=== PATIENT | female | born 1970 | race African-American/Black ===

== ENCOUNTER 2016-09-19 16:00 | Inpatient (IN) | payer MEDICARE, OTHER ==
[~2016-09-19] VITALS: Ht 160 cm; Wt 119.3 kg
--- NOTE | ~2016-09-19 | PN ---
Unit #: [id number] #: [id number] Patient: LINNETTE ZAVALA [id number] [facility] [address] [place] [address] [id number] MR#: [id number] NAME: LINNETTE ZAVALA. ROOM: P258 Age: 46 Sex: F Admission Date: 09/19/2016 : 1970 Attending Physician: Tolu Cazares M.D. Admitting Physician: Tolu Cazares M.D. Primary Care Physician: Primary Care Physician Adina PAIGE NOTES DATE 09/28/2016 DISCUSSION Ms. Zavala is a 46-year-old female who was seen today and chart was reviewed and case was discussed with the staff. She has been anxious, withdrawn and rather seclusive to herself. Meanwhile, she has been cooperative with treatment recommendations as she has been taking the medications and tolerating them fairly well with no reported side effects. MENTAL STATUS EXAMINATION Middle-aged female who was casually dressed with fair personal hygiene, appears to be in no acute distress or discomfort. She was awake and alert with intact orientation. Her mood was anxious with congruent affect. She denies any suicidal or homicidal ideations. Her insight and judgement remains slightly impaired. TREATMENT PLAN 1. We will continue her on her current medications and treatment protocol. We will monitor her response to the medication and make further adjustments as needed. 2. We will continue to follow up. Dictated by... Jane Chambers/hugo TD: 09/29/2016 03:32 JOB #: [id number] Unit #: [id number] #: [id number] Patient: LINNETTE ZAVALA CARMEN PROGRESS NOTES Page 1 of 1 X Tolu Cazares MD PROGRESS NOTE
--- NOTE | ~2016-09-19 | PN ---
Unit #: [id number] #: [id number] Patient: LINNETTE ZAVALA [id number] [facility] [address] [place] [address] [id number] MR#: [id number] NAME: LINNETTE ZAVALA. ROOM: P258 Age: 46 Sex: F Admission Date: 09/19/2016 : 1970 Attending Physician: Tolu Cazares M.D. Admitting Physician: Tolu Cazares M.D. Primary Care Physician: Primary Care Physician Adina MORALES PROGRESS NOTES DATE 09/26/2016 DISCUSSION Ms. Zavala is a 46-year-old female who was seen today and chart was reviewed and case was discussed with the staff. She reports persistent depression but she states anxiety is worse and she feels that her current medications are not effectively controlling her anxiety symptoms. Meanwhile, she has been going to therapy groups and has been participating. MENTAL STATUS EXAMINATION Middle-aged female who was casually dressed with fair personal hygiene and appears to be in no acute distress or discomfort. She was awake and alert on interaction with intact orientation. Her mood was anxious and depressed with congruent affect. Her speech is slow and goal-directed. She reports having suicidal ideation but denies any homicidal ideations. Her insight and judgement remain slightly impaired. TREATMENT PLAN 1. Will continue on current medications and treatment protocol. Will monitor her response to the medications and make further adjustments as needed. 2. Will continue to follow up. Dictated by... Jane Chambers/don TD: 09/26/2016 20:45 JOB #: [id number] Unit #: [id number] #: [id number] Patient: LINNETTE ZAVALA PROGRESS NOTES Page 1 of 1 X Tolu Cazares MD PROGRESS NOTE
--- NOTE | ~2016-09-19 | PN ---
Unit #: [id number] #: [id number] Patient: LINNETTE ZAVALA [id number] [facility] [address] [place] [address] [id number] I MR#: [id number] NAME: LINNETTE ZAVALA. ROOM: P258 Age: 46 Sex: F Admission Date: 09/19/2016 : 1970 Attending Physician: Tolu Cazares M.D. Admitting Physician: Tolu Cazares M.D. Primary Care Physician: Primary Care Physician Adina MORALES PROGRESS NOTES DATE 09/30/2016 DISCUSSION Ms. Zavala is a 46-year-old female who was seen today and chart was reviewed and case was discussed with the staff. She has been anxious, withdrawn, depressed and rather seclusive to herself. Meanwhile, she has been cooperative with treatment recommendations and has been taking the medications and tolerating them fairly well with no reported side effects. MENTAL STATUS EXAMINATION Middle-aged female who was casually dressed with fair personal hygiene and appears to be in no acute distress or discomfort. She was awake and alert with impaired attention and concentration. Her mood was anxious with congruent affect. She denies any current suicidal or homicidal ideations. Her insight and judgement remains slightly impaired. TREATMENT PLAN 1. Will continue on current medications and treatment protocol. Will monitor her response to the medications and make further adjustments as needed. 2. Will continue to follow up. Dictated by... Jane Chambers/don TD: 09/30/2016 18:18 JOB #: [id number] Unit #: [id number] #: [id number] Patient: LINNETTE ZAVALA PROGRESS NOTES Page 1 of 1 X Tolu Cazares MD X PROGRESS NOTE
--- NOTE | ~2016-09-19 | PA ---
Unit #: [id number] #: [id number] Patient: [facility] AGUIAR [id number] [facility] [address] [place] [address] [id number] I MR#: [id number] NAME: LINNETTE AGUIAR ROOM: P258 Age: 46 Sex: F Admission Date: 09/19/2016 : 1970 Date of Assessment: Attending Physician: Tolu Cazares M.D. Admitting Physician: Tolu Cazares M.D. Primary Care Physician: Primary Care Physician No PSYCHIATRIC ASSESSMENT DATE OF SERVICE 09/20/2016. IDENTIFYING DATA Ms. Aguiar is a 46-year-old single, female who is a resident of [place], [place] and is known to us from previous multiple encounters and was self-referred to the hospital on a voluntary basis. CHIEF COMPLAINT "I'm hearing voices and it has been telling me to kill myself." HISTORY OF PRESENT ILLNESS Ms. Aguiar is a 46-year-old female with history of mood disorder, who was self-referred to the hospital reporting not feeling good and was seen to be anxious, withdrawn, and reports increasing depression, anxiety, feelings of hopelessness and helplessness, and disturbed sleep and appetite, poor energy level, psychomotor retardation, and suicidal ideations as well as auditory hallucinations which are command in nature stating the voices are telling her to kill herself and as such, recommendation for inpatient level of care for safety and stabilization was made and the patient was transferred to us. SUBSTANCE ABUSE HISTORY The patient does have history of experimentation with alcohol, cannabis, and cocaine, but denies any current ongoing substance abuse issues. PAST PSYCHIATRIC HISTORY The patient has had history of multiple inpatient psychiatric and chemical dependency treatments including [facility] and residential facilities and review of the medical records indicate that she has been diagnosed and treated for bipolar disorder and supposed to be on Neurontin and Celexa and trazodone, but has been noncompliant with medication as such, has been decompensating. PAST MEDICAL HISTORY The patient's medical history is significant for hypertension and seizure disorder. ALLERGIES No known medication allergies. PERSONAL AND SOCIAL HISTORY A 46-year-old female who reports that she is single, Unit #: [id number] #: [id number] Patient: LINNETTE AGUIAR unemployed, and essentially homeless and has poor social support system. MENTAL STATUS EXAMINATION Middle-aged female who was casually dressed with fair personal hygiene, appears to be in no acute distress or discomfort. She was awake and alert on interaction with intact orientation to time, place, and person. Her mood was anxious and depressed with a congruent affect. Her speech was slow and restricted in content. She reports having suicidal ideations and command auditory hallucinations. Her insight and judgment remain significantly impaired. DIAGNOSTIC IMPRESSION Psychiatric: Bipolar disorder, most recent episode depressed, recurrent, moderate, with psychosis. Medical: Cannabis abuse, moderate; cocaine abuse, moderate. Medical: Hypertension, seizure disorder. Stressors: Moderate psychosocial stressors. TREATMENT PLAN 1. The patient has presented with history of mood disorder and psychosis and we will recommend inpatient hospitalization for safety and stabilization. We will start her back on her home medications. We will adjust the medications and monitor response. 2. Supportive therapy was provided to the patient. 3. Safe, structured, and nourishing environment will be provided. ESTIMATED LENGTH OF STAY 5 to 7 days. ABILITY TO HELP SELF Limited. WILLINGNESS TO HELP SELF The patient appears to be willing to help self. STRENGTHS 1. Communicative. 2. Cooperative. PROBLEMS 1. Chronic dysphoric symptoms. 2. Chronic chemical dependency. 3. Poor social support system. DISCHARGE CRITERIA This will be contingent upon the patient's ability to show resolution of her depression and psychosis, and her ability to stay safe to herself, particularly after discharge from the hospital. Dictated by... Tolu Cazares M.D. BERNARDO/emanuel TD: 09/20/2016 13:13 JOB #: [id number] Unit #: [id number] #: [id number] Patient: LINNETTE AGUIAR PSYCHIATRIC ASSESSMENT Page 1 of 1 X Tolu Cazares MD PSYCHIATRIC ASSESSMENT
--- NOTE | ~2016-09-19 | DS ---
Unit #: [id number] #: [id number] Patient: LINNETTE AGUIAR [id number] [facility] [address] [place] [address] [id number] I MR#: [id number] NAME: LINNETTE AGUIAR. ROOM: P258 Age: 46 Sex: F Admission Date: 09/19/2016 : 1970 Discharge Date: 10/02/2016 Attending Physician: Tolu Cazares M.D. Primary Care Physician: Primary Care Physician No DISCHARGE SUMMARY IDENTIFYING DATA Ms. Aguiar is a 46-year-old disabled female who is a resident of [place], [place] and is known to us from previous encounter and was self-referred to the hospital. HISTORY OF PRESENT ILLNESS Please see initial psychiatric evaluation. PAST PSYCHIATRIC HISTORY Please see initial psychiatric evaluation. PAST MEDICAL HISTORY Please see initial psychiatric evaluation. HOSPITAL COURSE The patient was [facility] and was oriented to the hospital environment. Routine p.r.n. medications were initiated and she was started back on her home medications. Medications were adjusted including her Risperdal and Effexor and was closely monitored. She was taking the medications and was complaining of persistent depressive symptoms and as such medications were gradually titrated up. She was seen to be polite and pleasant for the most part was cooperative with treatment recommendations and did not show any episode of agitation and aggression and was able to show a fairly decent therapeutic response and was willing to continue treatment on outpatient basis and was denying any further suicidal ideations and was not seen to be danger to self or anyone else and as such it was decided that she will be discharged and will continue treatment on outpatient basis. DISCHARGE DIAGNOSES PSYCHIATRIC: 1. Bipolar disorder, most recent episode depressed, recurrent, moderate, without psychotic features. 2. Cannabis abuse, moderate. 3. Cocaine abuse, moderate. MEDICAL: 1. Hypertension. 2. Seizure disorder. STRESSORS: Mild psychosocial stressors. Unit #: [id number] #: [id number] Patient: LINNETTE AGUIAR DISCHARGE MEDICATIONS 1. Neurontin 800 mg t.i.d. for neuropathy. 2. Topamax 100 mg at bedtime for mood. 3. Risperdal 2 mg at bedtime for bipolar. 4. Effexor XR 75 mg in the morning for depression. 5. Trazodone 150 mg at bedtime for sleep. 6. BuSpar 10 mg b.i.d. for anxiety. CONDITION AT DISCHARGE Stable. PROGNOSIS Fair. Dictated by... Tolu Cazares M.D. BERNARDO/don TD: 10/02/2016 18:57 JOB #: [id number] DISCHARGE SUMMARY Page 1 of 1 X Tolu Cazares MD X DISCHARGE SUMMARY
--- NOTE | ~2016-09-19 | PN ---
Unit #: [id number] #: [id number] Patient: LINNETTE ZAVALA [id number] [facility] [address] [place] [address] [id number] MR#: [id number] NAME: LINNETTE ZAVALA. ROOM: P258 Age: 46 Sex: F Admission Date: 09/19/2016 : 1970 Attending Physician: Tolu Cazares M.D. Admitting Physician: Tolu Cazares M.D. Primary Care Physician: Primary Care Physician Adina MORALES PROGRESS NOTES DATE OF SERVICE 09/22/2016 DISCUSSION Ms. Dawson is a 46-year-old female. The patient interviewed, chart reviewed. Obtained information from nursing staff. The patient withdrawn, isolative, flat affect. Continues to report feeling sad, depressed. Still having suicidal thoughts. Unable to contract for safety. Complete Review of Systems: Unremarkable. MENTAL STATUS EXAMINATION General Appearance: The patient dressed casually. Attention span, concentration: Fair. Oriented in place and person. Mood and affect labile. Speech: Monotone. Thought process: [place]. The patient denied any thoughts of harming self or others or any psychotic symptom. Recent and remote memory: Poor. Insight and judgment: Poor. DIAGNOSIS Major depressive disorder, recurrent, severe. ASSESSMENT/PLAN Advised to continue with current medication and therapeutic protocol. If needed, consider further adjustment of medication. Dictated by... Jane Cosme/rosa TD: 09/23/2016 11:06 JOB #: [id number] Unit #: [id number] #: [id number] Patient: LINNETTE ZAVALA [facility] PROGRESS NOTES Page 1 of 1 X Chano Davis MD PROGRESS NOTE
--- NOTE | ~2016-09-19 | PN ---
Unit #: [id number] #: [id number] Patient: LINNETTE ZAVALA [id number] [facility] [address] [place] [address] [id number] MR#: [id number] NAME: LINNETTE ZAVALA. ROOM: P258 Age: 46 Sex: F Admission Date: 09/19/2016 : 1970 Attending Physician: Tolu Cazares M.D. Admitting Physician: Tolu Cazares M.D. Primary Care Physician: Primary Care Physician Adina MORALES PROGRESS NOTES DATE OF SERVICE 10/01/2016 DISCUSSION Ms. Zavala is a 46-year-old female who was seen today. Chart was reviewed and case was discussed with the staff. She has been anxious, withdrawn, and rather seclusive to herself. Meanwhile, she has been cooperative with the treatment recommendations and has been taking the medications and tolerating them fairly well with no reported side effects. MENTAL STATUS EXAMINATION Middle-aged female who is casually dressed with fair personal hygiene, appears to be in no acute distress or discomfort. The patient was awake and alert on interaction with intact orientation. Her mood is anxious and depressed with congruent affect. Her speech is slow and goal-directed. She denies any suicidal or homicidal ideations. Her insight and judgment remain slightly impaired. TREATMENT PLAN 1. We will continue her on her current medications and treatment protocol. We will monitor her response to the medications and make further adjustments as needed. 2. We will continue to follow up. Dictated by... Jane Chambers/rosa TD: 10/01/2016 12:26 JOB #: [id number] Unit #: [id number] #: [id number] Patient: LINNETTE ZAVALA PROGRESS NOTES Page 1 of 1 X Tolu Cazares MD PROGRESS NOTE
--- NOTE | ~2016-09-19 | PN ---
Unit #: [id number] #: [id number] Patient: LINNETTE ZAVALA [id number] [facility] [address] [place] [address] [id number] I MR#: [id number] NAME: LINNETTE ZAVALA ROOM: P258 Age: 46 Sex: F Admission Date: 09/19/2016 : 1970 Attending Physician: Tolu Cazares M.D. Admitting Physician: Tolu Cazares M.D. Primary Care Physician: Primary Care Physician Adina PAIGE NOTES DATE September 27, 2016 DISCUSSION Ms. Zavala is a 46-year-old female, who was seen today and chart was reviewed and the case was discussed with the staff. She has been doing somewhat better and has been showing improvement in her depression and anxiety, and she has been cooperative with the treatment recommendations. She has been taking the medications and tolerating them fairly well with no reported side effects. MENTAL STATUS EXAMINATION Middle-aged female, who was casually dressed with fair personal hygiene and appears to be in no acute distress or discomfort. She was awake and alert with intact orientation. Her mood is anxious and depressed with a congruent affect. She denies any suicidal or homicidal ideations. Her insight and judgment remain slightly impaired. TREATMENT PLAN 1. We will continue her on her current medications and treatment protocol, and will monitor her response to the medications, and make further adjustments as needed. 2. We will continue to followup. Dictated by... Jane Chambers/bryan TD: 09/28/2016 05:58 JOB #: [id number] Unit #: [id number] #: [id number] Patient: LINNETTE ZAVALA CAR[facility] PROGRESS NOTES Page 1 of 1 X Tolu Cazares MD PROGRESS NOTE
--- NOTE | ~2016-09-19 | PN ---
Unit #: [id number] #: [id number] Patient: EUNICE ZAVALA [id number] [facility] [address] [place] [address] [id number] I MR#: [id number] NAME: EUNICE ZAVALA. ROOM: P258 Age: 46 Sex: F Admission Date: 09/19/2016 : 1970 Attending Physician: Tolu Cazares M.D. Admitting Physician: Tolu Cazares M.D. Primary Care Physician: Primary Care Physician Adina MORALES PROGRESS NOTES DATE OF SERVICE 09/21/2016 DISCUSSION Ms. Eunice Zavala is a 46-year-old female seen on 09/21/2016. The patient interviewed, chart reviewed. Obtained information from nursing staff. The patient compliant, cooperative. Reported feeling sad, depressed, having suicidal ideation. The patient denied any other complaints. Complete Review of Systems: Unremarkable. MENTAL STATUS EXAMINATION General Appearance: The patient dressed casually. Attention span, concentration: Fair. Oriented in time, place, and person. Mood and affect: Sad, depressed, withdrawn, isolative, guarded. Having suicidal ideation. Recent and remote memory: Poor. Insight and judgment: Poor. DIAGNOSIS Mood disorder not otherwise specified. ASSESSMENT/PLAN Advised to continue with current medication and therapeutic protocol. If needed, consider further adjustment of medication. Dictated by... Jane Cosme/rosa TD: 09/23/2016 09:31 JOB #: [id number] Unit #: [id number] #: [id number] Patient: EUNICE ZAVALA [facility] PROGRESS NOTES Page 1 of 1 X Chano Davis MD PROGRESS NOTE
--- NOTE | ~2016-09-19 | PN ---
Unit #: [id number] #: [id number] Patient: EUNICE ZAVALA [id number] [facility] [address] [place] [address] [id number] MR#: [id number] NAME: EUNICE ZAVALA. ROOM: P258 Age: 46 Sex: F Admission Date: 09/19/2016 : 1970 Attending Physician: Tolu Cazares M.D. Admitting Physician: Tolu Cazares M.D. Primary Care Physician: Primary Care Physician Adina MORALES PROGRESS NOTES DATE OF SERVICE 09/23/2016 DISCUSSION Ms. Eunice Zavala is a 46-year-old female seen on 09/23/2016. Patient interviewed, chart reviewed. Obtained information from nursing staff. Patient was compliant and cooperative. Mood sad, dysphoric. Patient dressed in hospital attire. Reported still feeling sad, depressed, suicidal ideation. withdrawn, isolative, Complete review of systems unremarkable. MENTAL STATUS EXAMINATION General appearance, patient dressed casually. Attention span and concentration fair. Oriented to time, place and person. Mood and affect sad, dysphoric, withdrawn, isolative. Sad, dysphoric. Suicidal ideation. Recent and remote memory poor. Insight and judgement poor. DIAGNOSES 1. Schizoaffective disorder bipolar type. 2. Major depressive disorder recurrent severe. ASSESSMENT/PLAN Advise to continue with current medication and therapeutic protocol. If needed consider further adjustment of medication. Dictated by... Jane Cosme/hugo TD: 09/24/2016 05:01 JOB #: [id number] Unit #: [id number] #: [id number] Patient: EUNICE ZAVALA PROGRESS NOTES Page 1 of 1 X Chano Davis MD X PROGRESS NOTE
--- NOTE | ~2016-09-19 | PN ---
Unit #: [id number] #: [id number] Patient: LINNETTE ZAVALA [id number] [facility] [address] [place] [address] [id number] I MR#: [id number] NAME: LINNETTE ZAVALA. ROOM: P258 Age: 46 Sex: F Admission Date: 09/19/2016 : 1970 Attending Physician: Tolu Cazares M.D. Admitting Physician: Tolu Cazares M.D. Primary Care Physician: Primary Care Physician Adina MORALES PROGRESS NOTES DATE OF SERVICE 09/24/2016 DISCUSSION Ms. Dawson is a 46-year-old female seen on 09/24/2016. The patient interviewed, chart reviewed. Obtained information from nursing staff. The patient continues to report feeling sad, depressed, withdrawn, suicidal. Complete Review of Systems: Unremarkable. MENTAL STATUS EXAMINATION General Appearance: The patient dressed casually. Attention span, concentration: Fair. Oriented in time, place, and person. Mood and affect: Sad, depressed. Speech: Monotone. Thought process: [place]. The patient reported having suicidal ideation. Unable to contract for safety. Withdrawn, isolative, seclusive. Recent and remote memory: Poor. Insight and judgment: Poor. DIAGNOSES 1. Mood disorder not otherwise specified. 2. Psychosis not otherwise specified. ASSESSMENT/PLAN Advised to continue with current medication and therapeutic protocol. If needed, consider further adjustment of medication. Dictated by... Jane Cosme/rosa TD: 09/25/2016 07:19 JOB #: [id number] Unit #: [id number] #: [id number] Patient: LINNETTE ZAVALA [facility] PROGRESS NOTES Page 1 of 1 X Chano Davis MD X PROGRESS NOTE
--- NOTE | ~2016-09-19 | HP ---
Unit #: [id number] #: [id number] Patient: EUNICE ZAVALA [id number] [place] [address] [id number] MR#: [id number] NAME: EUNICE ZAVALA. ROOM: P258 Age: 46 Sex: F Admission Date: 09/19/2016 : 1970 Attending Physician: Tolu Cazares M.D. Admitting Physician: Tolu Cazares M.D. Primary Care Physician: Primary Care Physician No HISTORY AND PHYSICAL HISTORY OF PRESENT ILLNESS Eunice is a 46-year-old female admitted on 09/19/[address] [place] [address] for auditory hallucinations. PAST MEDICAL HISTORY Hypertension and obesity and seizure disorder. PAST SURGICAL HISTORY Denies. SOCIAL HISTORY Smokes 1/2 pack of cigarettes daily, denies alcohol or illegal drug use. She is currently single and homeless. FAMILY HISTORY Noncontributory. REVIEW OF SYSTEMS CONSTITUTIONAL: No fever or chills. HEENT: Denies any sore throat, ear pain or runny nose. CARDIOVASCULAR: Denies chest pain, irregular heart rhythm or palpitations. CHEST: Denies shortness of breath or cough. No hemoptysis. GASTROINTESTINAL: Denies nausea, vomiting, diarrhea or chronic constipation. ENDOCRINE: Denies history of increased thirst or urination. No recent significant weight loss or gain. GENITOURINARY: Denies dysuria, frequency, or hematuria. SKIN: Denies any rashes. HEMATOLOGIC: Denies history of increased bleeding or bruising. MUSCULOSKELETAL: Denies any hot, swollen joints. No generalized muscle pain. NEUROLOGIC: Denies problems with vision or speech. No frequent, severe headaches. No numbness, tingling or weakness in any extremities. Denies loss of bladder or bowel control. CURRENT MEDICATIONS please see extended medication reconciliation form in records. ALLERGIES No known drug allergies. PHYSICAL EXAMINATION Unit #: [id number] #: [id number] Patient: EUNICE ZAVALA GENERAL: Alert, oriented, in no acute distress. VITAL SIGNS: Blood pressure 149/93, heart rate 111, temp 99.2. HEIGHT: 5 foot 3 inches. WEIGHT: 263 pounds. SKIN: Warm and dry without rash or lesion. HEENT: Normocephalic. TMs not viewed. Oral and nasal passages clear. Conjunctivae clear. PERRLA. EOMs intact. NECK: Supple without lymphadenopathy or thyromegaly. HEART: Regular rate and rhythm without murmur. LUNGS: Clear. ABDOMEN: Soft, nontender, without masses or hepatosplenomegaly. : Not done. EXTREMITIES: No evidence of cyanosis, clubbing or edema. Moves all without focal deficit. NEUROLOGICAL: Grossly within normal limits. Cranial Nerves: II: Visual lord are intact. III, IV AND : Extraocular movements are intact. Pupils are equal, round and reactive to light. V: Facial sensation is grossly normal. VII: Facial movements and expression are normal. VIII: Auditory acuity grossly intact. IX, X: Uvula is midline. Phonation is normal. XI: Patient shrugs shoulders and turns head normally. XII: Tongue protrudes in the midline. Sensory and Motor Function: Sensory and motor sensation is grossly normal. Motor: moves all extremities well. Coordination: Gait is normal. Deep Tendon Reflexes: Intact. IMPRESSION 1. Psychiatric admission. 2. Hypertension. 3. Obesity. 4. Seizure disorder. RECOMMENDATIONS Psychiatric, per psychiatrist. MEDICAL: I see no contraindications to participating in facility's activities. MEDICAL PROGNOSIS Good. MEDICAL CONDITION Stable. Dictated by... Deon Chang/hugo TD: 09/21/2016 00:36 JOB #: [id number] Unit #: [id number] #: [id number] Patient: EUNICE ZAVALA HISTORY AND PHYSICAL Page 1 of 1 X KOLBY ALVAREZ APRN HISTORY AND PHYSICAL
--- NOTE | ~2016-09-19 | PN ---
Unit #: [id number] #: [id number] Patient: LINNETTE AGUIAR [id number] [facility] [address] [place] [address] [id number] MR#: [id number] NAME: LINNETTE AGUIAR. ROOM: P258 Age: 46 Sex: F Admission Date: 09/19/2016 : 1970 Attending Physician: Tolu Cazares M.D. Admitting Physician: Tolu Cazares M.D. Primary Care Physician: Primary Care Physician Adina MORALES PROGRESS NOTES DATE 09/29/2016 DISCUSSION Ms. Aguiar is a 46-year-old female who was seen today and chart was reviewed and case was discussed with the staff. She has been anxious, withdrawn and rather seclusive to herself. Meanwhile, she has been cooperative with treatment recommendations and has been taking medications and tolerating them fairly well ____ side effects. MENTAL STATUS EXAMINATION Middle-aged female who was casually dressed with fair personal hygiene and appears to be in no acute distress or discomfort. She was awake and alert with intact orientation. Her mood was anxious with congruent affect. She denies any suicidal or homicidal ideation. Her insight and judgement remains slightly impaired. TREATMENT PLAN 1. Will continue on current medications and treatment protocol and will monitor her response to medications and make further adjustments as needed. 2. Will continue to follow up. Dictated by... Tolu Cazares M.D. IAA/don TD: 09/29/2016 21:25 JOB #: [id number] Unit #: [id number] #: [id number] Patient: LINNETTE AGUIAR ISABELLAKAT PROGRESS NOTES Page 1 of 1 X Tolu Cazares MD PROGRESS NOTE
[2016-09-21 10:37] LABS: BASOPHIL# 0.1 X10e3 (0-0.3); EOSINOPHIL# 0.1 X10e3 (0-0.7); EOSINOPHIL% 2.2 % (0.0-7.0); HEMATOCRIT 28.4 % (35.0-45.0); HEMOGLOBIN 8.8 gm/dL (12.0-16.0); LYMPHOCYTE# 1.6 X10e3 (1.0-3.5); LYMPHOCYTE% 26.7 % (17.0-45.0); MEAN CELL VOLUME 73.5 FL (83-96); MEAN CORPUSCULAR HEMOGLOBIN 22.7 PG (28-34); MEAN CORPUSCULAR HGB CONC 30.9 g/dL (30-36); MEAN PLATELET VOLUME 7.2 FL (6.5-11.5); MONOCYTE# 0.5 X10e3 (0-1.0); MONOCYTE% 8.9 % (3.0-12.0); NEUTROPHIL# 3.7 X10e3 (1.5-7.1); NEUTROPHIL% 61.2 % (40-75); PLATELET COUNT 295 X10e3 (140-420); RED BLOOD COUNT 3.87 X10e (3.90-5.30); WHITE BLOOD COUNT 6.1 X10e3 (4.0-10.5)
[2016-09-21 11:02] LABS: DIFF IND NO
[2016-09-21 11:16] LABS: ALBUMIN SERUM 3.3 g/dL (3.5-5.0); BILIRUBIN,TOTAL 0.3 mg/dL (0.2-2.0); CALCIUM SERUM 8.9 mg/dL (8.4-10.2); GLOM FILT RATE Estimated 79.4 mL/min (>60); POTASSIUM 4.2 mmol/L (3.5-5.1)
[2016-09-24 12:39] LABS: URINE APPEARANCE CLEAR; URINE BILIRUBIN NEG (NEG); URINE BLOOD NEG (NEG); URINE COLOR YELLOW; URINE GLUCOSE NEG (NEG); URINE KETONE NEG (NEG); URINE LEUKOCYTE ESTERASE NEG (NEG); URINE NITRATE NEG (NEG); URINE PH 7.5 (5-8); URINE PROTEIN NEG (NEG); URINE SPECIFIC GRAVITY 1.015 (1.003-1.035); URINE UROBILINOGEN 0.2 MG/DL (NEG)
[2016-09-24 12:56] LABS: AMPHETAMINE NEG (NEG); BARBITURATES NEG (NEG); BENZODIAZEPINES NEG (NEG); COCAINE NEG (NEG); MARIJUANA NEG (NEG); OPIATES NEG (NEG); TRICYCLIC ANTIDEPRESSANTS NEG (NEG); U METHADONE NEG (NEG)
== END 2016-10-02 10:00 | disposition home or self-care (01) | DRG 885 ==
LOC: P2L 18:59
PROVIDERS: Psychiatry & Neurology Psychiatry
DX: F31.5 Bipolar disorder, current episode depressed, severe, with psychotic features (principal); F14.20 Cocaine dependence, uncomplicated; R45.851 Suicidal ideations; Z68.42 Body mass index [BMI] 45.0-49.9, adult; I10 Essential (primary) hypertension; F12.20 Cannabis dependence, uncomplicated; G40.909 Epilepsy, unspecified, not intractable, without status epilepticus; Z59.0 Homelessness; F17.210 Nicotine dependence, cigarettes, uncomplicated; E66.9 Obesity, unspecified; F29 Unspecified psychosis not due to a substance or known physiological condition
CPT/HCPCS: 80053; 80307; 81003; 84703; 85025